=== PATIENT | male | born 1970 | race Caucasian/White ===

== ENCOUNTER → 2023-12-23 | Day surgery (SDC) | payer MEDICARE, MEDICAID ==
[~2023-12-23] VITALS: Ht 165.1 cm; Wt 86.2 kg
[~2023-12-23] MED LIST: ACET500C47 PO; ASPI-1497 PO; ATOR10TA69 PO; BALANCED SALT IRRIG SOLN 15ML ONE; BALANCED SALT IRRIG SOLN COMB1 500ML OP NR; BRIM10DR2 EACHEYE; DAPA5TAB PO; FENTANYL CITRATE/PF 50MCG/ML 2ML VIAL ONE; HYALURONATE SODIUM 10MG/ML 0.85ML SYRINGE IO ONE; HYDROMORPHONE HCL/PF 1MG/ML INJ IV PRN; HYDROMORPHONE HCL/PF 2MG/ML INJ IV PRN; LABETALOL 5MG/ML 4ML INJ IV PRN; LATA2.5D14 EACHEYE; LATA5DRO LEFTEYE; LIDOCAINE HCL 1% 20ML VIAL ONE; MEPERIDINE HCL/PF 25MG/ML CPJ IV PRN; METF-415 PO; METH50TA5 PO; MIDAZOLAM HCL 2 MG/2 ML VIAL ONE; NETA2.5D RIGHTEYE; OCUFLX EACHEYE; ONDANSETRON HCL 4MG/2ML INJ IV PRN; PROPOFOL 200MG/20ML VIAL IV ONE; SODIUM CHLORIDE 0.9% 1,000 ML IV SCH; TRIAMCINOLONE ACETONIDE 40MG/ML 1ML VIAL ONE
== END | disposition home or self-care (01) ==
LOC: OR 07:35
PROVIDERS: ATTEND Ophthalmology
DX: E11.39 Type 2 diabetes mellitus with other diabetic ophthalmic complication (principal); H40.89 Other specified glaucoma; E11.69 Type 2 diabetes mellitus with other specified complication; E78.5 Hyperlipidemia, unspecified; I12.9 Hypertensive chronic kidney disease with stage 1 through stage 4 chronic kidney disease, or unspecified chronic kidney disease; E11.22 Type 2 diabetes mellitus with diabetic chronic kidney disease; N18.30 Chronic kidney disease, stage 3 unspecified; Z79.899 Other long term (current) drug therapy; Z79.82 Long term (current) use of aspirin; Z79.84 Long term (current) use of oral hypoglycemic drugs; Z98.890 Other specified postprocedural states
CPT/HCPCS: 66180; 82962; C1783; J3010; J3490 ×4; J2250; J2704; J3301

== ENCOUNTER → 2024-10-05 | Day surgery (SDC) | payer MEDICARE, MEDICAID ==
[~2024-10-05] VITALS: Ht 165.1 cm; Wt 81.6 kg
[~2024-10-05] MED LIST changes: +ACETAMINOPHEN 1,000MG/100ML PREMIX IV PRN; -BALANCED SALT IRRIG SOLN 15ML ONE; -BALANCED SALT IRRIG SOLN COMB1 500ML OP NR; +CIPROFLOXACIN 0.3% OPHTH SOLN 2.5ML ONE; +FAMOTIDINE 20MG/2ML VIAL IV PRN; -FENTANYL CITRATE/PF 50MCG/ML 2ML VIAL ONE; -HYALURONATE SODIUM 10MG/ML 0.85ML SYRINGE IO ONE; +HYDRALAZINE 20MG/ML VIAL IV PRN; -HYDROMORPHONE HCL/PF 2MG/ML INJ IV PRN; -LATA2.5D14 EACHEYE; +LATA2.5D7 EACHEYE; -LIDOCAINE HCL 1% 20ML VIAL ONE; +LIDOCAINE HCL 2% 5ML SYRINGE IV ONE; +NEO/POLYMYX B SULF/DEXAMETH OPHTH OINT 3.5GM ONE; +PREDNISOLONE ACETATE 1% OPHTH DROPS 5ML ONE; +TETRACAINE 0.5% OPHTH DROPS 4ML ONE
== END | disposition home or self-care (01) ==
LOC: OR 07:35
PROVIDERS: ATTEND Ophthalmology
DX: T85.398A Other mechanical complication of other ocular prosthetic devices, implants and grafts, initial encounter (principal); I10 Essential (primary) hypertension; E11.9 Type 2 diabetes mellitus without complications; E78.5 Hyperlipidemia, unspecified; Z98.890 Other specified postprocedural states; Z79.82 Long term (current) use of aspirin; Z79.84 Long term (current) use of oral hypoglycemic drugs; Z79.899 Other long term (current) drug therapy; X58.XXXA Exposure to other specified factors, initial encounter; Y93.89 Activity, other specified; Y92.89 Other specified places as the place of occurrence of the external cause; Y99.8 Other external cause status
CPT/HCPCS: 66180; 82962; J2003; J2250; J2704; J3301